=== PATIENT | male | born 1945 | race Caucasian/White ===

== ENCOUNTER → 2017-09-14 | Outpatient (CLI) | payer MEDICARE, OTHER ==
[~2017-09-14] MED LIST: ALLE12TA PO; CARD120C4 PO; CIPR500T2 PO; LEVO25TA6 PO; LISI2.5T3 PO; MOME17I
== END ==
LOC: PLAB 09:52
PROVIDERS: ATTEND Family Medicine
DX: E03.9 Hypothyroidism, unspecified (principal)
CPT/HCPCS: 36415; 84443